=== PATIENT | male | born 1995 | race Caucasian/White ===

== ENCOUNTER 2017-10-23 14:25 | Emergency (ER) | payer OTHER ==
[2017-10-23] MEDS: ACETAMINOPHEN 325 MG TAB PO (15:19)
== END 2017-10-23 17:09 | disposition home or self-care (01) ==
LOC: FTE 14:25
DX: S93.402A Sprain of unspecified ligament of left ankle, initial encounter (principal); X58.XXXA Exposure to other specified factors, initial encounter; Y92.9 Unspecified place or not applicable
CPT/HCPCS: 73610; 99283-25